=== PATIENT | female | born 1990 | race Caucasian/White ===

== ENCOUNTER 2021-02-02 16:10 | Emergency (ER) | payer OTHER ==
[~2021-02-02] VITALS: Ht 170.2 cm; Wt 72.6 kg
[2021-02-02 16:38] VITALS: BP 131/75
[2021-02-02] MEDS ORDERED: predniSONE 20 MG TABLET PO ONE (17:00)
[2021-02-02] MEDS ORDERED: TRAM50TA2 PO (17:23)
[2021-02-02] MEDS ORDERED: IBUP-1955 PO (17:23)
[2021-02-02] MEDS ORDERED: DIPH25CA83 PO (17:23)
[2021-02-02] MEDS ORDERED: predniSONE 20 MG TABLET ONE (17:40)
--- NOTE | 2021-02-02 17:57 | NUR ---
PROVIDED W. WALKING BOOT. D/C IN STABLE CONDITION.
== END 2021-02-02 17:58 | disposition home or self-care (01) ==
LOC: ER 16:25
DX: S90.31XA Contusion of right foot, initial encounter (principal); M25.571 Pain in right ankle and joints of right foot; R21 Rash and other nonspecific skin eruption; Z79.899 Other long term (current) drug therapy; W22.8XXA Striking against or struck by other objects, initial encounter; Y93.89 Activity, other specified; Y92.89 Other specified places as the place of occurrence of the external cause; Y99.8 Other external cause status
CPT/HCPCS: 73610; 73630; 99284; J7512